=== PATIENT | male | born 1950 | race Caucasian/White ===

== ENCOUNTER 2017-11-12 12:23 | Emergency (ER) | payer OTHER ==
[2017-11-12 15:43] VITALS: BP 141/102
== END 2017-11-12 15:43 | disposition home or self-care (01) ==
LOC: ED 12:23 → EDBD 12:23 → ED 15:43
DX: M54.42 Lumbago with sciatica, left side (principal); I10 Essential (primary) hypertension
CPT/HCPCS: J2270; J2405